=== PATIENT | female | born 1980 | race Caucasian/White ===

== ENCOUNTER 2017-11-27 07:56 | Outpatient (CLI) | payer BC ==
--- NOTE | 2017-11-27 13:45 | PET ---
PET WITH CT OF SKULL TO MID THIGH: INDICATION: History of lung pulmonary nodule; suspected lung cancer. TECHNIQUE: PET images were obtained following administration of 11.4 mCi F18-FDG IV. CT images were obtained for attenuation correction purposes only. Comparison made with the prior CTA of the thorax performed at [facility] on 10/29/17 . FINDINGS: Biodistribution: The biodistribution for the examination appears acceptable. Head/Neck: There is hypermetabolic activity involving the palatine tonsils bilaterally. The peak SUV uptake for the right palatine samples was 5.39 with a mean value of 4.88. Similar values are demonstrated within the left palatine tonsils. No additional hypermetabolic lymph node is evident. However, there are sh otty, nonpathologically enlarged, lymph nodes present. The most prominent measures 9.6 mm within the left Level IIA position. No additional hypermetabolic soft tissue mass or lymphadenopathy is evident. Thorax: The pulmonary nodule within the right upper lobe adjacent to the right minor fissure is not appreciab ly changed in size from the most recent comparison in October 2017. There is no hypermetabolic uptake r elated to this pulmonary nodule and the peak SUV uptake is 0.89 and the mean value is 0.79. There are sub-4.0 mm pulmonary nodules within the left upper lobe that below PET resolution threshold. There a re areas of subsegmental volume loss within both lung bases. The mildly prominent mediastinal, homogeneous, smooth contoured nodes do not demonstrate overt hyperm etabolic activity. The prevascular lymph nodes have a peak SUV value of 2.27 with a mean value of 2.0 8. Subcarinal lymph node has a peak SUV uptake of 2.7 and mean value of 2.6. No hypermetabolic mass i s evident. Abdomen/Pelvis: No hypermetabolic lymphadenopathy or soft tissue mass is identified. There is a 4.5 cm hypodense lesi on involving the left neck without associated hypermetabolic uptake. IUD is seen within the central a spect of the uterus. Skin/Osseous Structures: No hypermetabolic skin or osseous lesions identified. IMPRESSION: Abnormal PET CT: 1. There is hypermetabolic activity involving the palatine tonsils bilaterally, which can be reactiv e and related to an inflammatory or infectious etiology. Would recommend correlation with the clinica l examination and patient's history. Patient has mildly prominent lymph nodes within the neck bilater ally, as well as within the upper mediastinum that does not demonstrate overt hypermetabolic uptake a s the palatine tonsils do. Low grade lymphoma cannot be excluded; however, inflammatory entities such as sarcoidosis could have this appearance. Would recommend consideration for biopsy. 2. The pulmonary nodules seen within the right upper lobe adjacent to the right minor fissure on the comparison exam demonstrates no associated hypermetabolic activity and may reflect scar from prior i nfection or inflammation. A granulomatous type lesion cannot be excluded. Would recommend a short-ter m CT follow-up of the lungs in 6 months to document stability. There are small sub-4.0 mm pulmonary n odules in the left upper lobe below PET resolution threshold. 3. 4.5 cm oval hypodense lesion without associated hypermetabolic activity involving region of the l eft adnexa suspicious for a large follicular cyst. Recommend follow-up pelvic ultrasound in 4-6 weeks to document resolution. POS: RHONDA
== END 2017-11-27 07:57 | disposition home or self-care (01) ==
LOC: PET 07:56
PROVIDERS: ATTEND Internal Medicine Critical Care Medicine
DX: R91.8 Other nonspecific abnormal finding of lung field (principal); N85.9 Noninflammatory disorder of uterus, unspecified
CPT/HCPCS: 78815; A9552

== ENCOUNTER 2018-02-05 05:51 | Day surgery (SDC) | payer OTHER ==
[2018-02-04 10:39] VITALS: BMI 26.6
[2018-02-05] MEDS ORDERED: CEFAZOLIN/Water 2 GM/20 ML SYRINGE ONE (06:21)
[2018-02-05] MEDS ORDERED: Ketorolac Tromethamine 30 MG/ML VIAL ONE (06:22)
[2018-02-05] MEDS ORDERED: Bupivacaine HCl 0.5%/Epinephrine 1:200,000/PF 30 ml Vial ONE (06:27)
[2018-02-05] MEDS ORDERED: Bacitracin Zinc Ointment 30 gm TUBE ONE (06:27)
[2018-02-05] MEDS ORDERED: Lidocaine 2% 10 ML INJ ONE (06:27)
[2018-02-05 06:49] LABS: #Basophils 0.1 thou/uL (0.0-0.2); #Eosinphils 0.1 thou/uL (0.0-0.7); #Lymphocytes 2.3 thou/uL (1.20-3.40); #Monocytes 0.8 thou/uL (0.11-0.59); #Neutrophils 7.8 thou/uL (1.40-6.50); %Basophils 0.7 % (0.0-1.0); %Eosinophils 1.3 % (0.0-10.0); %Lymphocytes 20.8 % (21.0-51.0); %Monocytes 7.3 % (0.0-10.0); %Neutrophils 69.9 % (42.0-75.0); Hemoglobin 13.9 g/dL (12.0-16.0); Mean Corpuscular HGB CONC 34.3 g/dL (32.0-36.0); Mean Corpuscular Hemoglobin 32.4 pg (27.0-31.0); Mean Corpuscular Volume 94.6 fL (78.0-98.0); Platelet Count 237 thou/uL (130-400); RBC Distribution Width 13.3 % (11.5-14.5); White Blood Cell (WBC) Count 11.1 thou/uL (4.8-10.8)
[2018-02-05 07:04] LABS: Anion Gap 14 mmol/L (10-20); BUN (Urea Nitrogen) 7 mg/dL (7.0-18.7); Calc. Creatinine Clearance 121 mL/min (70-130); Calcium 9.1 mg/dL (7.8-10.44); Carbon Dioxide 22 mmol/L (22-29); Chloride 108 mmol/L (98-107); Estimated GFR-MDRD 84; Glucose 94 mg/dL (70-105); Potassium 4.3 mmol/L (3.5-5.1); Sodium 140 mmol/L (136-145)
[2018-02-05] MEDS ORDERED: Midazolam HCl 2 mg/2 ml Vial ONE (07:43)
[2018-02-05] MEDS ORDERED: Fentanyl 100 MCG/2 ML VIAL ONE (07:43)
[2018-02-05] MEDS ORDERED: PROPOFOL 200 MG/20 ML VIAL ONE (12:35)
[2018-02-05] MEDS ORDERED: Ondansetron HCl/PF 4 MG/2 ML Vial ONE (12:35)
[2018-02-05] MEDS ORDERED: Lidocaine 1% PF 5 ML VIAL ONE (12:35)
[2018-02-05] MEDS ORDERED: ePHEDrine/0.9% NaCl/PF SYRINGE 50 mg/10 ml ONE (12:35)
--- NOTE | 2018-02-06 09:53 | OP ---
DATE OF PROCEDURE: 02/05/2018 PREOPERATIVE DIAGNOSIS: Bilateral groin hidradenitis with chronic pain, inflammation and drainage. POSTOPERATIVE DIAGNOSIS: Bilateral groin hidradenitis with chronic pain, inflammation and drainage. OPERATION PERFORMED: Wide excision of bilateral inguinal hidradenitis. SURGEON: Krishna Plummer M.D. ANESTHESIA: General endotracheal. INDICATIONS: The patient is a 37-year-old white female. She has had areas of chronic inflammation, induration and purulent drainage, just below the inguinal crease in her bilateral upper inner thigh/g roin. I had recommended smoking cessation, but she has been unable to accomplish this. She presents at this time, desired to proceed with excision of the involved areas. DESCRIPTION OF OPERATION: Informed consent was obtained. The patient was taken to the operating santino m where general anesthesia was obtained with the patient in supine position. Bilateral inguinal area s were prepped with ChloraPrep and draped in sterile fashion. The vaginal area was excluded from the center of the operative site. Attention was turned first to the right groin. I was able to identify the palpable indurated and margaret ewhat erythematous tissue. There was at least one and may be two openings on the skin from which I w as able to express some purulent material. I created an elliptical incision to incorporate all invol angelina tissue. Dissection was then carried deeply within the soft tissue to attempt to elevate all of t he inflamed and infected tissue. Dissection was always carried out within normal tissue. The majori ty of the dissection was carried out with electrocautery. The specimen was removed intact and passed off the field. Meticulous hemostasis obtained with electr ocautery. The wound was irrigated. I elevated the flap of skin and subcutaneous fat from the latera l aspect of the incision to be able to mobilize this medially so as to avoid labial distraction. The wound was closed in layers with 3-0 Vicryl and 3-0 Prolene. Attention was then turned to the left groin. The patient had almost mirror image disease between the two sides. I therefore created essentially a mirror image incision, again encompassing all involved tissue and openings. The same dissection and excision was performed along with the same closure. A ntibiotic ointment was placed on both incision sites as well as dry gauze dressing. There were no co mplications. The patient tolerated the procedure well and was taken to recovery room in stable condi tion.
== END 2018-02-05 11:45 | disposition home or self-care (01) ==
LOC: SDC 05:51
PROVIDERS: ATTEND Specialist
PROC: 0JBC0ZZ Excision of Pelvic Region Subcutaneous Tissue and Fascia, Open Approach (ICD-10-PCS; principal; 2018-02-05)
DX: L73.2 Hidradenitis suppurativa (principal); L02.214 Cutaneous abscess of groin; F17.200 Nicotine dependence, unspecified, uncomplicated; Z79.899 Other long term (current) drug therapy; Z88.1 Allergy status to other antibiotic agents; Z91.040 Latex allergy status; Z88.2 Allergy status to sulfonamides
CPT/HCPCS: 80048; 85025; 88305; J0131; J0670; J1885; J2001; J2250; J2405; J2704; J3010

== ENCOUNTER 2018-05-20 10:51 | Outpatient (CLI) | payer OTHER ==
[2018-05-20 11:50] LABS: Mean Corpuscular HGB CONC 32.7 g/dL (32.0-36.0)
[2018-05-20 12:05] LABS: Hemoglobin 14.6 g/dL (12.0-16.0); Mean Corpuscular Hemoglobin 32.3 pg (27.0-31.0); Mean Corpuscular Volume 98.9 fL (78.0-98.0); Mean Platelet Volume 8.5 fL (7.4-10.4); Platelet Count 263 thou/uL (130-400); RBC Distribution Width 12.7 % (11.5-14.5); Red Blood Cell (RBC) Count 4.52 mill/uL (4.20-5.40); White Blood Cell (WBC) Count 10.3 thou/uL (4.8-10.8)
[2018-05-20 12:07] LABS: PTT 30.7 SEC (22.9-36.1); Prothrombin Time 13.4 SEC (12.0-14.7)
== END 2018-05-20 10:52 | disposition home or self-care (01) ==
LOC: LABBT 10:51
PROVIDERS: ATTEND Neurological Surgery
DX: Z01.812 Encounter for preprocedural laboratory examination (principal); M50.10 Cervical disc disorder with radiculopathy, unspecified cervical region
CPT/HCPCS: 85027; 85610; 85730

== ENCOUNTER 2018-05-22 06:27 | Day surgery (SDC) | payer OTHER ==
[2018-05-20 11:08] VITALS: BMI 26.6
--- NOTE | 2018-05-21 01:22 | HP ---
HISTORY OF PRESENT ILLNESS: This is a 37-year-old female who reports to our office for evaluation of neck pain. She states that she has had this pain for many years; however, it is worse than the last year. She states that she has had this pain between her shoulder blades, base of her neck which gives her headaches as well as radiating behind her shoulder blade top of her right shoulder. She states that she has also been recently diagnosed with bilateral carpal tunnel syndrome. She states it is very uncomfortable at night and there is no comfortable way to sleep. She has weakness in the left wrist extension and finger extension. The patient has tried muscle relaxers, pain medications without much benefit. She had an injection with Dr. Palencia, which was very painful. She is currently taking Tylenol and gabapentin with some relief of her symptoms. REVIEW OF SYSTEMS: A 10-point review of systems has been completed and is negative other than stated above in the HPI. ALLERGIES: Hidradenitis, spinal stenosis, arthritis, depression, headaches. SURGICAL HISTORY: PET, , knee surgery, excision of bilateral groin hidradenitis. FAMILY HISTORY: Father is alive, diagnosed with heart disease. Mother is alive , diagnosed with heart disease. SOCIAL HISTORY: The patient is a smoker, smokes approximately 1 pack a day. Denies alcohol or drug use. MEDICATIONS: Vitamin D, potassium, sertraline. ALLERGIES: BACTRIM, LATEX. PHYSICAL EXAMINATION: GENERAL: The patient is well appearing, alert, and oriented. HEENT: Normocephalic, atraumatic. Extraocular movements are intact. Pupils are equal. NECK: Normal. Soft and supple. No masses are noted. Range of motion is intact, worse with rotation to the right. Tenderness in the midline back. NEUROLOGIC: Awake, alert and oriented x3. Memory attention, fund of knowledge and language are normal. Cranial nerves are normal, grossly intact. UPPER EXTREMITIES: 5/5 bilateral strength deltoids, biceps, triceps, finger intrinsics 4/5 left wrist extension and finger extension. RESPIRATIONS: Normal work of breathing in room air. CARDIAC: Regular rate and rhythm. IMAGING: Cervical MRI, herniated nucleus pulposus C5-C6 and C6-C7, left greater than right foraminal disease. ASSESSMENT AND PLAN: Cervical radiculopathy with herniated nucleus pulposus. Dr. De Luna has offered an ACDF C5 through C7. We have discussed the indications, risks, benefits, alternatives, and expected results from surgery. The risks discussed included, but were not limited to bleeding, infection, CSF leak, nerve damage, weakness, swallowing trouble, feeding tube placement, tracheal injury, esophageal injury, vocal cord injury, spinal cord injury, incontinence, paralysis, ventilator dependence, wheelchair dependence, stroke, loss of vision, carotid artery injury, jugular vein injury, hardware misplacement, cardiopulmonary complications of anesthesia with long-term complications discussed included, but were not limited to hardware failure and the degradation of surrounding disk. The patient states that she understands the risks and is willing to proceed with surgery. RA
[2018-05-22] MEDS ORDERED: CEFAZOLIN 2 GM/50 ML BAG ONE (07:48)
[2018-05-22] MEDS ORDERED: Thrombin 5000 UNITS/5 ML VIAL ONE (07:53)
[2018-05-22] MEDS ORDERED: Sodium Chloride 0.9% 10 ML ONE (07:53)
[2018-05-22] MEDS ORDERED: Fentanyl 100 MCG/2 ML VIAL ONE ×2 (08:17→12:13)
[2018-05-22] MEDS ORDERED: PHENYLEPHRINE-NS 100 MCG/ML 10 ML SYRINGE ONE ×2 (10:23→13:03)
[2018-05-22] MEDS ORDERED: Promethazine HCl 25 MG/ML VIAL IM PRN (11:28)
[2018-05-22] MEDS ORDERED: Promethazine 25 MG TAB PO PRN (11:28)
[2018-05-22] MEDS ORDERED: Acetaminophen/Codeine 30-300mg Tablet PO PRN ×2 (11:28)
[2018-05-22] MEDS ORDERED: traMADol HCl 50 MG TAB PO PRN ×2 (11:28)
[2018-05-22] MEDS ORDERED: Promethazine HCl 12.5 MG SUPP PR PRN (11:28)
[2018-05-22] MEDS ORDERED: Acetaminophen 650 MG Suppository PR PRN (11:28)
[2018-05-22] MEDS ORDERED: Ondansetron PF 4 MG/2 ML Vial IVP PRN (11:28)
[2018-05-22] MEDS ORDERED: Acetaminophen 325 MG TAB PO PRN (11:28)
[2018-05-22] MEDS ORDERED: Albuterol Sulfate 1.25 MG/3 ML NEB ONE (12:14)
--- NOTE | 2018-05-22 12:17 | OP ---
DATE OF PROCEDURE: 05/22/2018 SURGEON: Trista De Luan M.D. 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 PREOPERATIVE INDICATION: Treat pain, prevent neurological deterioration. PREOPERATIVE DIAGNOSES: Intervertebral disk disease with spinal stenosis and foraminal stenosis at C 5-6 and C6-7 cervical radiculopathies. POSTOPERATIVE DIAGNOSES: Intervertebral disk disease with spinal stenosis and foraminal stenosis at C5-6 and C6-C7 cervical radiculopathies. OPERATIVE PROCEDURE: Anterior cervical diskectomy, intervertebral arthrodesis, placement of interver tebral biomechanical device, anterior cervical plating C5-C6 and C6-C7, local morselized autograft, m orselized Allograft, operating microscope. PREOPERATIVE MEDICATION: Ancef 2 grams IV. DRAIN NUMBER: Zero. DRAIN TYPE: None. OPERATIVE DICTATION: The patient was brought to the operating room. General endotracheal anesthesia was induced. The patient was positioned supine on the operating table, keeping her neck in normal a natomic alignment. A lateral fluoro radiograph was used to plan our incision. The right side of the neck was sterilely prepped and draped. We opened our incision with a 10 blade knife and controlled bleeding with bipolar cautery. We dissected sharply to the platysma and cut this muscle in line with our incision. We continued our dissection medial to the sternocleidomastoid, lateral to the trachea and esophagus down to the prevertebral space. We placed a marker at C4-5 and took a lateral fluoro radiograph to confirm the levels upon which we were operating. From there, we dissected down and pablo vated the longus colli muscles off of C5, C6, and C7, and placed self-retaining retractors beneath th em. Distraction pins were placed at C5 and C7 and we distracted across the intervening interspaces. We incised the interspaces with a 15 blade knife and removed disk contents using curettes and rongeu rs and then brought the operating microscope into the field. Under microscopic magnification and using microsurgical techniques, we removed the remainder of the i ntervertebral disk at C5-6 and C6-7. We accessed the ventral epidural space with a micro curette and then using Kerrison rongeurs, we removed the posterior longitudinal ligament and posterior osteophyt es at C5-6 and C6-7 from one neural foramen all the way to the other neural foramen. There was excel lent decompression at C5-6 and C6-7 including the spinal canal and both foramina at both individual l evels. We then turned our attention to arthrodesis. Using a curette, we prepared the endplates for grafting. We measured the height at the interspace wi th a bone rasp to 7 mm at C6-7 and 6 mm at C5-6. The appropriately sized PEEK grafts were brought in to the field. These interbody devices were loaded with demineralized bone matrix and morselized auto graft. The autograft prepared on the backtable from osteophytes were removed during decompression wh ich were cleaned of soft tissue, morselized and added to demineralized bone matrix to form our fusion substrate. The interbody grafts were advanced into the interspaces under radiographic guidance to t he appropriate depth. Next, 31 mm anterior cervical plate was brought into the field. We drilled regional airline pilot holes through the p late into the vertebral segments of C5, C6, and C7 and we affixed the plate using 14 mm screws. We e ngaged the locking mechanism over each of the 6 screws. AP and lateral fluoro radiographs confirmed adequate positioning of all our instrumentation. We irrigated copiously with bacitracin irrigation. We closed the wound in anatomic layers. We applied a sterile dressing. This was a clean case and n o contamination.
[2018-05-22] MEDS ORDERED: Ondansetron PF 4 MG/2 ML Vial ONE (13:03)
[2018-05-22] MEDS ORDERED: Dexamethasone 20 MG/5 ML VIAL ONE (13:03)
[2018-05-22] MEDS ORDERED: ePHEDrine/0.9% NaCl/PF SYRINGE 50 mg/10 ml ONE (13:03)
[2018-05-22] MEDS ORDERED: Lidocaine 1% PF 5 ML VIAL ONE (13:03)
[2018-05-22] MEDS ORDERED: Glycopyrrolate 0.2 MG/ML 5 ML SYRINGE ONE (13:03)
[2018-05-22] MEDS ORDERED: Metoclopramide HCl 10 MG/2 ML VIAL ONE (13:03)
[2018-05-22] MEDS ORDERED: PROPOFOL 200 MG/20 ML VIAL ONE (13:03)
== END 2018-05-22 14:42 | disposition home or self-care (01) ==
LOC: SDC 06:27
PROVIDERS: ATTEND Neurological Surgery
DX: M50.122 Cervical disc disorder at C5-C6 level with radiculopathy (principal); M48.02 Spinal stenosis, cervical region; G56.03 Carpal tunnel syndrome, bilateral upper limbs; M50.20 Other cervical disc displacement, unspecified cervical region; F17.200 Nicotine dependence, unspecified, uncomplicated; Z88.2 Allergy status to sulfonamides; Z91.040 Latex allergy status
CPT/HCPCS: 76001; 96374; C1713; C1776; J0131; J1100; J2001; J2405; J2704; J2765; J3010; J3490

== ENCOUNTER 2018-06-02 11:04 | Outpatient (CLI) | payer OTHER ==
[~2018-06-02 11:04] MED LIST: HYDROmorphone 2 MG/ML VIAL SLOW IVP PRN; Meperidine HCl/PF 25 MG/ML VIAL SLOW IVP PRN; Morphine Sulfate 2 MG/ML SYRINGE SLOW IVP PRN; Ondansetron HCl/PF 4 MG/2 ML Vial IVP PRN; PACU-Morphine 4MG/ML VIAL SLOW IVP PRN; Promethazine HCl 25 MG/ML VIAL IM PRN; Promethazine HCl 25 MG/ML VIAL SLOW IVP PRN
[2018-06-02] MEDS ORDERED: ISOVUE-370 76%-LOCM 1 ML ONE (12:01)
--- NOTE | 2018-06-02 14:05 | CT ---
CHEST CT WITH CONTRAST: Comparison: None. Correlation: PET imaging 11-27-17. History: Follow up hypermetabolic nodules in the right lung, to assess for stability. FINDINGS: There is evidence of nonspecific, nonenlarged paratracheal lymph nodes. There is an enlarged right hi lar lymph node measuring 1.7 x 1.4 cm. Previous PET does not demonstrate any associated hypermetaboli c activity. Prominence of the lymph node is of uncertain significance. There is mild fullness of a ri ght infrahilar lymph node, measuring 1.1 x 1.0 cm. Visualized aorta and central pulmonary vessels are unremarkable. Visualized upper solid organs have appropriate enhancement. Thoracic spine vertebral body height is maintained. No fracture or malalignment. There are dependent atelectatic changes in the lung parenchyma. No suspicious masses or nodules in th e left lung. There is a linear opacity in the right hemithorax, adjacent to the minor fissure compati ble with an area of subpleural scarring. No suspicious masses or nodules are appreciated. No pleural effusion or pneumothorax. Incidental stable 4 mm nodule in the right upper lobe. There is mild induration of the insertion of the right sternocleidomastoid muscle just proximal to th e clavicle. Significance is uncertain. IMPRESSION: Stable appearing opacity adjacent to the minor fissure comptable with an area of scarring. POS: RHONDA
== END 2018-06-02 11:05 | disposition home or self-care (01) ==
LOC: BICCT 11:04
PROVIDERS: ATTEND Internal Medicine Critical Care Medicine
DX: R91.1 Solitary pulmonary nodule (principal)
CPT/HCPCS: 71260

== ENCOUNTER 2018-07-16 17:00 | Outpatient (CLI) | payer OTHER | END 2018-07-16 17:01 | disposition home or self-care (01) | LOC: SLEEPLAB 17:00 | PROVIDERS: ATTEND Internal Medicine Critical Care Medicine | DX: G47.33 Obstructive sleep apnea (adult) (pediatric) (principal); R53.83 Other fatigue; R06.83 Snoring; E11.9 Type 2 diabetes mellitus without complications; R51 Headache; R35.1 Nocturia; I63.9 Cerebral infarction, unspecified; F41.9 Anxiety disorder, unspecified; R09.89 Other specified symptoms and signs involving the circulatory and respiratory systems; R09.02 Hypoxemia; Z68.26 Body mass index [BMI] 26.0-26.9, adult | CPT/HCPCS: 95806 ==

== ENCOUNTER 2018-10-06 14:43 | Outpatient (CLI) | payer OTHER ==
--- NOTE | 2018-10-06 15:05 | RAD ---
F3 views of the cervical spine 10/06/2018 COMPARISON: 09/15/2018 HISTORY: Severe pain, prior surgery FINDINGS: Anterior discectomy and fusion hardware present at C5-6/C6-7, unchanged when compared to th e 09/15/2018 exam. No prevertebral soft tissue swelling. Mild stable degenerative change at the atlant oaxial interspace. No significant anterolisthesis or retrolisthesis seen on neutral or extension imag ing. Mild anterolisthesis is seen on flexion imaging at C2-3 measuring approximately 2-3 mm and at C3 -4 measuring approximately 2 mm. IMPRESSION: Postoperative and degenerative changes of the cervical spine as above.
== END 2018-10-06 14:44 | disposition home or self-care (01) ==
LOC: TBSIIMAG 14:43
PROVIDERS: ATTEND Neurological Surgery
DX: M50.20 Other cervical disc displacement, unspecified cervical region (principal); M47.812 Spondylosis without myelopathy or radiculopathy, cervical region; Z98.890 Other specified postprocedural states
CPT/HCPCS: 72040

== ENCOUNTER 2018-11-12 08:34 | Outpatient (CLI) | payer OTHER ==
--- NOTE | 2018-11-12 09:14 | CT ---
CT chest with IV contrast HISTORY: Lung nodule. Follow-up. COMPARISON: 06/03/2018. And 10/29/2017. FINDINGS: The somewhat triangular noncalcified area of parenchymal opacity along the anterior aspect of the minor fissure is stable and has the appearance of scarring. Pulmonary hyperinflation with scattered areas of mild peripheral scarring and nonspecific subpleural patchy groundglass opacity are stable. Within the lateral aspect of the right lung apex, a tiny subpleural groundglass nodule is stable. No pleural fluid or pneumothorax. Reactive appearing lymph n odes within the mediastinum are stable compared to 06/02/2018 remain less prominent and is 10/29/2017 exam. IMPRESSION: Stable CT appearance of the area of scarring along the right minor fissure and other cheerleading coach ray-type findings. No new abnormalities are demonstrated.
[2018-11-12] MEDS ORDERED: ISOVUE-370 76%-LOCM 1 ML ONE (11:43)
== END 2018-11-12 08:35 | disposition home or self-care (01) ==
LOC: BICCT 08:34
PROVIDERS: ATTEND Internal Medicine Critical Care Medicine
DX: R91.1 Solitary pulmonary nodule (principal); F17.200 Nicotine dependence, unspecified, uncomplicated; R91.8 Other nonspecific abnormal finding of lung field; J98.4 Other disorders of lung
CPT/HCPCS: 71260